=== PATIENT | male | born 1945 | race Caucasian/White ===

== ENCOUNTER 2019-01-14 16:22 | Outpatient (CLI) | payer MEDICARE, OTHER ==
--- NOTE | 2019-01-15 08:03 | MRI ---
MRI UPPER EXTREMITY JOINT RIGHT WITHOUT CONTRAST: History: M 77.101 tear of right rotator cuff. Comparison: None.. Findings: Biceps tendon: Chronic tear of the biceps tendon which appears guarded at the intertubercular groove. No abnormal intra-articular tendon is appreciated. Labrum: There is tear throughout the substance of the superior labrum extending through the biceps la bral anchor. Rotator cuff: There is high-grade interstitial-type tearing undersurface delamination of the subscapu jerrell. Full-thickness full width supraspinatus and infraspinatus tendon tears from the footprint retracted to the medial one third humeral head. Torn fibers are incidentally tendinotic Bones: Type III acromion with undersurface keel osteophyte. Moderate degenerative disease acromioclav icular joint. Muscles: Greater than 50% atrophy of the supraspinatus and infraspinous muscles. Soft tissues: Moderate subacromial/subdeltoid bursa effusion due to communication with the glenohumer al joint. Mild synovitis of the axillary pouch. Impression: 1. Full-thickness full width supraspinatus and infraspinous tendon tears from the footprint retracted to the medial one third humeral head. Torn fibers are severely tendinotic with greater than 50% muscle atrophy. 2. Tear throughout the superior labral substance extending through the biceps anchor. 3. Ruptured intra-articular biceps tendon with the extra-articular tendon scarred at the intertubercu lar groove. Transcribed Date/Time: 01/15/2019 8:19 AM
== END 2019-01-14 16:23 | disposition home or self-care (01) ==
LOC: SCSMRI 16:22
PROVIDERS: ATTEND Orthopaedic Surgery
DX: M75.101 Unspecified rotator cuff tear or rupture of right shoulder, not specified as traumatic (principal); M75.121 Complete rotator cuff tear or rupture of right shoulder, not specified as traumatic; M75.91 Shoulder lesion, unspecified, right shoulder; S46.211A Strain of muscle, fascia and tendon of other parts of biceps, right arm, initial encounter

== ENCOUNTER 2019-09-21 12:11 | Outpatient (CLI) | payer MEDICARE, OTHER ==
[2019-09-21 12:52] LABS: Estimated GFR-MDRD - POC Greater than 90
--- NOTE | 2019-09-21 14:09 | CT ---
CT ABDMEN AND PELVIS WITH AND WITHOUT IV CONTRAST: 09/21/19 HISTORY: 73-year-old male with benign prostatic hyperplasia, microscopic hematuria and proteinuria. FINDINGS: Absence of oral contrast reduces the sensitivity of the exam, particularly for evaluation of bowel. T here is scarring in the left lower chest, old lower left rib fractures and capsular calcifications of the spleen. These are likely due to previous trauma. The liver, pancreas and adrenal glands are normal. No calcified gallstones are seen. No calculi is noted in the kidneys, ureters or the urinary bladder. There is a 2 cm exophytic cyst ar ising from the right kidney. No enhancing mass is seen on postcontrast images. There is normal contra st excretion into the ureters and urinary bladder. No hydroureteronephrosis seen on either side. No f ree air, free fluid or lymphadenopathy is seen in the abdomen or pelvis. There are vascular calcifica tions without evidence of aneurysmal dilatation of the abdominal aorta. The prostate is mildly enlarg ed. There is colonic diverticulosis without diverticulitis. There is fecal material in the colon. The small bowel loops are not abnormally dilated. There are degenerative changes in the spine. IMPRESSION: 1. No CT evidence of urinary tract calculi/obstruction or enhancing renal mass. 2. Right renal cyst. 3. Colonic diverticulosis. 4. Prostatic enlargement. POS: [facility]
== END 2019-09-21 12:12 | disposition home or self-care (01) ==
LOC: SCSCT 12:11
PROVIDERS: ATTEND Urology
DX: N40.0 Benign prostatic hyperplasia without lower urinary tract symptoms (principal); R31.29 Other microscopic hematuria; R80.9 Proteinuria, unspecified; N28.1 Cyst of kidney, acquired; K57.30 Diverticulosis of large intestine without perforation or abscess without bleeding
CPT/HCPCS: 74178; 82565

== ENCOUNTER 2020-10-23 15:35 | Outpatient (CLI) | payer MEDICARE, OTHER ==
[2020-10-23 16:12] LABS: #Basophils 0.1 10x3/uL (0.0-0.2); #Eosinphils 0.2 10x3/uL (0.0-0.5); #Neutrophils 6.6 10x3/uL (1.5-8.4); %Basophils 0.6 % (0.0-2.0); %Eosinophils 2.2 % (0.0-6.0); %Lymphocytes 19.3 % (18.0-47.0); %Monocytes 10.3 % (0.0-10.0); Hemoglobin 12.1 g/dL (13.5-17.5); Mean Corpuscular HGB CONC 32.2 g/dL (32.0-36.0); Mean Corpuscular Hemoglobin 30.8 pg (27.0-33.0); Mean Corpuscular Volume 95.7 fl (81.2-95.1); Mean Platelet Volume 8.9 fl (7.4-10.4); Platelet Count 216 10x3/uL (150-450); RBC Distribution Width 13.1 % (11.5-14.5); Red Blood Cell (RBC) Count 3.93 10x6/uL (4.32-5.72); White Blood Cell (WBC) Count 9.8 10x3/uL (3.5-10.5)
[2020-10-23 16:28] LABS: Anion Gap 10 mmol/L (10-20); BUN (Urea Nitrogen) 26 mg/dL (8.4-25.7); Calc. Creatinine Clearance 0 mL/min (70-130); Calcium 9.5 mg/dL (7.8-10.44); Carbon Dioxide 33 mmol/L (23-31); Chloride 101 mmol/L (98-107); Glucose 62 mg/dL (83-110); Potassium 4.5 mmol/L (3.5-5.1); Sodium 139 mmol/L (136-145)
[2020-10-24 05:52] LABS: SARS-CoV-2 PCR by NAA Not Detected (NotDetected)
== END 2020-10-23 15:36 | disposition home or self-care (01) ==
LOC: LABBT 15:35
PROVIDERS: ATTEND Surgery
DX: Z01.818 Encounter for other preprocedural examination (principal); K43.9 Ventral hernia without obstruction or gangrene; Z20.822 Contact with and (suspected) exposure to COVID-19
CPT/HCPCS: 80048; 85025; 93005; U0003; U0005; 87635; 93010

== ENCOUNTER 2020-10-26 07:05 | Day surgery (SDC) | payer MEDICARE, OTHER ==
[2020-10-25 11:35] VITALS: BMI 28.1
[2020-10-26] MEDS ORDERED: Bupivacaine 0.25% HCL 30 ML VIAL ONE (08:41)
[2020-10-26] MEDS ORDERED: Lidocaine 2% w/Epinephrine 1:200K 20 ML VIAL ONE (08:41)
[2020-10-26] MEDS ORDERED: Fentanyl 250 MCG/5 ML VIAL ONE (09:12)
[2020-10-26] MEDS ORDERED: Lidocaine 1% PF 5 ML VIAL ONE (09:16)
[2020-10-26] MEDS ORDERED: Rocuronium Bromide 10 MG/ML (10ML VIAL) ONE (09:16)
[2020-10-26] MEDS ORDERED: Glycopyrrolate 0.2 MG/ML 5 ML SYRINGE ONE (09:16)
[2020-10-26] MEDS ORDERED: Ondansetron PF 4 MG/2 ML Vial ONE (09:16)
[2020-10-26] MEDS ORDERED: ePHEDrine Sulfate 50 MG/10 ML VIAL ONE (09:16)
[2020-10-26] MEDS ORDERED: PROPOFOL 200 MG/20 ML VIAL ONE (09:16)
[2020-10-26] MEDS ORDERED: SUGAMMADEX SODIUM 200 MG/2 ML VIAL ONE (10:25)
[2020-10-26] MEDS ORDERED: HYDROcodone/Acetaminophen 5/325 mg Tablet ONE (12:33)
== END 2020-10-26 13:35 | disposition home or self-care (01) ==
LOC: SDC 07:05
PROVIDERS: ATTEND Surgery
PROC: 0WUF4JZ Supplement Abdominal Wall with Synthetic Substitute, Percutaneous Endoscopic Approach (ICD-10-PCS; principal; 2020-10-26)
DX: K43.9 Ventral hernia without obstruction or gangrene (principal); M19.90 Unspecified osteoarthritis, unspecified site; F03.90 Unspecified dementia, unspecified severity, without behavioral disturbance, psychotic disturbance, mood disturbance, and anxiety; I10 Essential (primary) hypertension; I25.10 Atherosclerotic heart disease of native coronary artery without angina pectoris; N40.1 Benign prostatic hyperplasia with lower urinary tract symptoms; N39.41 Urge incontinence; Z79.84 Long term (current) use of oral hypoglycemic drugs; Z79.899 Other long term (current) drug therapy
CPT/HCPCS: C1781; J0690; J2405; J2704; J3010; S0020